=== PATIENT | female | born 1955 | race Caucasian/White ===

== ENCOUNTER 2020-06-03 11:45 | Emergency (ER) | payer MEDICAID ==
[~2020-06-03] VITALS: Ht 157.5 cm; Wt 69.9 kg
[~2020-06-03 11:45] MED LIST: AUG500 PO; LIPITOR10 MG; NORCO 10-325 T1 EACH; NORCO 10-325 T1 EACH PO; ROXICODONE15 M1; TIROSINT13 MCG
[2020-06-03 11:49] VITALS: Ht 157.5 cm; Wt 69.9 kg
[2020-06-03 13:18] LABS: microscopic required? NO
[2020-06-03 13:33] LABS: UA SPECIFIC GRAVITY <=1.005 (1.005-1.035); urine erythrocyte NEGATIVE (NEGATIVE)
[2020-06-03 13:41] LABS: BASOPHIL % 0.6 % (0.2-1.3); PLATELET COUNT 264 x10^3mcL (179-408)
[2020-06-03 14:00] LABS: RED CELL DISTRIBUTION WIDTH 18.6 % (12.3-17.7)
[2020-06-03 14:15] LABS: CALCIUM 9.1 mg/dL (8.5-10.1); CARBON DIOXIDE 25.5 mmol/L (21-32); POTASSIUM SERUM 3.8 mmol/L (3.5-5.1)
[2020-06-03 14:19] LABS: ALBUMIN 3.5 g/dL (3.4-5.0); BILIRUBIN TOTAL 0.69 mg/dL (0.20-1.00); TOTAL PROTEIN, SERUM 7.1 g/dL (6.4-8.2)
[2020-06-03 14:51] VITALS: BP 130/74
== END 2020-06-03 14:51 | disposition home or self-care (01) ==
LOC: ED 11:45
PROVIDERS: Emergency Medicine
DX: K59.00 Constipation, unspecified (principal); R10.84 Generalized abdominal pain; C79.60 Secondary malignant neoplasm of unspecified ovary; E78.00 Pure hypercholesterolemia, unspecified